=== PATIENT | male | born 1985 | race Caucasian/White ===

== ENCOUNTER 2021-02-21 22:01 | Emergency (ER) | payer OTHER ==
[~2021-02-21] VITALS: Ht 185.4 cm; Wt 97.5 kg
[2021-02-21] MEDS ORDERED: NAPROSYN500 MG PO (23:09)
== END 2021-02-21 23:27 | disposition home or self-care (01) ==
LOC: ED 22:01
DX: M79.641 Pain in right hand (principal)

== ENCOUNTER 2021-03-03 21:28 | Emergency (ER) | payer OTHER ==
[~2021-03-03] VITALS: Wt 102.1 kg
[~2021-03-03 21:28] MED LIST: NAPROSYN500 MG PO
[2021-03-03] MEDS ORDERED: MINIPRESS1 M1 PO (21:38)
[2021-03-03] MEDS ORDERED: IBUPROFEN600 MG PO (22:32)
[2021-03-03] MEDS ORDERED: CIPRO500 MG PO (22:32)
== END 2021-03-03 22:58 | disposition home or self-care (01) ==
LOC: ED 21:28
DX: S91.331A Puncture wound without foreign body, right foot, initial encounter (principal); Z79.899 Other long term (current) drug therapy; W22.8XXA Striking against or struck by other objects, initial encounter; Y93.89 Activity, other specified; Y92.89 Other specified places as the place of occurrence of the external cause; Y99.8 Other external cause status

== ENCOUNTER → 2021-03-14 | Outpatient (CLI) | payer OTHER ==
[~2021-03-14] MED LIST changes: +CIPRO500 MG PO; +IBUPROFEN600 MG PO; +MINIPRESS1 M1 PO
== END | disposition home or self-care (01) ==
LOC: RAD 11:23
PROVIDERS: ATTEND Chiropractor Orthopedic
DX: M99.03 Segmental and somatic dysfunction of lumbar region (principal)

== ENCOUNTER → 2021-08-15 | Outpatient (CLI) | payer OTHER | END | disposition home or self-care (01) | LOC: RAD 17:47 | PROVIDERS: ATTEND Chiropractor Orthopedic | DX: S83.411A Sprain of medial collateral ligament of right knee, initial encounter (principal); X58.XXXA Exposure to other specified factors, initial encounter; Y93.89 Activity, other specified; Y92.89 Other specified places as the place of occurrence of the external cause; Y99.8 Other external cause status ==

== ENCOUNTER 2022-04-07 10:06 | Emergency (ER) | payer OTHER ==
[~2022-04-07] VITALS: Ht 185.4 cm; Wt 99.8 kg
[2022-04-07] MEDS ORDERED: BENADRYL ALLERG25 M5 PO (10:31)
[2022-04-07] MEDS ORDERED: EPIPEN 2-P0.3 MG/0.3 IJ (10:31)
[2022-04-07] MEDS ORDERED: PREDNISONE10 MG PO (10:31)
== END 2022-04-07 12:30 | disposition home or self-care (01) ==
LOC: ED 10:06
DX: T78.40XA Allergy, unspecified, initial encounter (principal); Z79.899 Other long term (current) drug therapy; X58.XXXA Exposure to other specified factors, initial encounter